=== PATIENT | female | born 2000 | race Two or more races ===

== ENCOUNTER 2018-01-07 12:24 | Emergency (ER) | payer OTHER ==
[~2018-01-07] VITALS: Ht 160 cm; Wt 63.5 kg
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
[2018-01-07] MEDS ORDERED: TDAP [DIPH/PERTUSSIS/TET] 0.5 ML VIAL IM ONE ×2 (13:15→13:30)
[2018-01-07] MEDS ORDERED: ACETAMINOPHEN 325 MG TABLET ONE (13:15)
[2018-01-07] MEDS ORDERED: ACETAMINOPHEN 325 MG TABLET PO ONE (13:30)
[2018-01-07] MEDS ORDERED: LIDOCAINE HCL/PF 1% 30 ML VIAL TP ONE (13:30)
[2018-01-07] MEDS ORDERED: LIDOCAINE 1% INJ 50 ML MDV IJ ONE ×2 (14:09→14:30)
[2018-01-07] MEDS ORDERED: LIDOCAINE 1%-EPI 1:100,000 50 ML VIAL IJ ONE (14:30)
[2018-01-07] MEDS ORDERED: BENZOIN COMPOUND TINCT 60 ML BOTTLE MM STA (14:43)
[2018-01-07 16:42] VITALS: BP 130/80
--- NOTE | 2018-01-07 16:43 | NUR ---
Patient discharged to home in stable condition. Written and verbal after care instructions given. Patient verbalizes understanding of instruction.
== END 2018-01-07 16:43 | disposition home or self-care (01) ==
LOC: ER 12:25
DX: S01.01XA Laceration without foreign body of scalp, initial encounter (principal); S01.312A Laceration without foreign body of left ear, initial encounter; V43.52XA Car driver injured in collision with other type car in traffic accident, initial encounter; Y93.89 Activity, other specified; Y92.89 Other specified places as the place of occurrence of the external cause; Y99.8 Other external cause status
CPT/HCPCS: 70450-TC; 71045-TC; 73030-TC; 84703-TC; 90715; A4606; A6402; A6403; J3490; Z7610